=== PATIENT | female | born 1980 | race Caucasian/White ===

== ENCOUNTER 2017-11-04 09:32 | Observation (INO) ==
[2017-11-04] MEDS ORDERED: 0.9 % Sodium Chloride 1,000 ML IVC ONE (09:43)
[2017-11-04] MEDS ORDERED: Ondansetron 4 MG/2 ML VIAL IVP ONE ×2 (09:44→10:58)
[2017-11-04] MEDS ORDERED: Isovue-370 500 ML INFUS..BTL IV ONE ×2 (09:47→13:28)
--- NOTE | 2017-11-04 09:47 | Emergency Department Note ---
Disposition Clinical Impression: Syncope Qualifiers: Syncope type: unspecified Qualified Code(s): R55 - Syncope and collapse Fever Qualifiers: Fever type: unspecified Qualified Code(s): R50.9 - Fever, unspecified Disposition: Admitted As Inpatient Condition: Good Referrals: Hope Perez CNP [Primary Care Provider] - Forms: ED Satisfaction Letter Time of Disposition: 14:02 General Adult HPI - General Chief complaint: ED Chest Pain Stated complaint: CP, +SYNCOPE Time Seen by Provider: 11/04/17 09:36 Source: patient Mode of arrival: wheelchair Limitations: no limitations Nursing Notes Reviewed: Yes Vital Signs Reviewed: Yes - History of Present Illness HPI Narrative: 37-year-old who states the 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 She does not know how long she was on the ground. She feels nauseated now and just does not feel right. Pt Subjective Complaint: Syncopal episode with chest discomfort. Onset (ago): Just WHEELMAN Location: chest Radiation: non-radiation Pain Severity: moderate Pain Scale: 8 Quality: aching Consistency: constant Improves with: nothing Worsens with: nothing Associated symptoms: Reports: denies other symptoms Treatments Prior to Arrival: none - Related Data Home Medications Medication Instructions Recorded Confirmed BuPROPion [Wellbutrin] 300 mg PO DAILY 02/03/15 07/23/17 Hydrochlorothiazide 25 mg PO DAILY 12/05/16 07/23/17 Previous Rx's Medication Instructions Recorded cephALEXin [Keflex] 1,000 mg PO BID #40 capsule 07/23/17 Allergies Allergy/AdvReac Type Severity Reaction Status Date / Time Iodinated Contrast- Oral and AdvReac Vomiting Verified 11/04/17 11:18 IV Dye Penicillins [PCN] AdvReac Swelling Verified 11/04/17 09:35 of Lip/Tongue/Throat All systems ED: reviewed and negative except as stated. Constitutional: Denies: fever, chills, weakness, weight change Eyes: Denies: eye pain, eye discharge, vision change ENT ED: Denies: ear pain, throat pain, dental pain, hearing loss, epistaxis, congestion, dysphagia Cardiovascular: Reports: chest pain, syncope. Denies: palpitations, dyspnea on exertion, edema Respiratory: Denies: cough, dyspnea, wheezes, hemoptysis, stridor Gastrointestinal: Denies: abdominal pain, nausea, vomiting, diarrhea, constipation, hematemesis, melena, hematochezia Genitourinary: Denies: dysuria, frequency, hematuria, discharge Musculoskeletal: Denies: back pain, neck pain, arthralgia, myalgia Integumentary: Denies: rash, abrasion, lesions Neurological: Denies: headache, weakness, numbness, paresthesias, confusion, abnormal gait, vertigo Psychiatric: Denies: anxiety, depression, suicidal thoughts, homicidal thoughts , auditory hallucinations, visual hallucinations Endocrine: Denies: fatigue Hematological/Lymphatic: Denies: easy bleeding, easy bruising Allergic/Immunologic: Denies: facial swelling, urticaria Past Medical History - Past Medical History Medical history: Reports: asthma, cancer, hypertension, migraine Surgical history: Reports: hysterectomy, other (breast reduction) Psychiatric history: Reports: depression - Social History Smoking Status: Current some day smoker Smokeless Tobacco Status: No Alcohol use: Reports: none Drug use: Reports: none Physical Exam - General Limitations: no limitations General appearance: alert, in no apparent distress - Head Head exam: atraumatic, normocephalic, normal inspection - Eye Eye exam: Present: normal appearance, PERRL, EOMI - ENT ENT exam: normal exam, normal oropharynx, mucous membranes moist - Neck Neck exam: Present: normal inspection, full ROM, trachea midline - Chest Chest inspection: Present: normal inspection, symmetric chest wall rise - Respiratory Respiratory exam: Present: normal lung sounds bilaterally - Cardiovascular Cardiovascular exam: Present: regular rate, tachycardia - Abdominal Exam Abdominal exam: Present: soft, Non-Tender. Absent: tenderness, distention, guarding, rebound, rigidity - Extremities Exam Extremities exam: Present: normal inspection, full ROM. Absent: tenderness, pedal edema - Expanded Lower Extremity Exam Neurovascular/Tendon exam: Absent: motor deficit, sensory deficit, tendon deficit Gait: observed and normal - Back Exam Back exam: Present: normal inspection, full ROM. Absent: tenderness - Neurological Exam Neurological exam: Present: alert, oriented X3 - Psychiatric Psychiatric exam: Present: normal affect, normal mood - Skin Skin exam: Present: warm, dry, intact, normal color Course - Reevaluation(s) Reevaluation #1: 37-year-old who had a syncopal episode woke up in the shower. On exam here neurologically she is intact CT of the head and CT of the chest were both negative. She does have a fever with no focus. Time: 14:02 - Consultations Consultation #1: Discussed with Dr. Christianson, admit. Time: 14:02 Vital Signs Temperature 100.1 F H 11/04/17 09:32 Pulse Rate 122 11/04/17 09:32 Respiratory Rate 18 11/04/17 09:32 Blood Pressure 143/90 11/04/17 09:32 O2 Sat by Pulse Oximetry 98 11/04/17 09:32 Temperature 100.5 F H 11/04/17 13:47 Pulse Rate 99 11/04/17 13:48 Respiratory Rate 17 11/04/17 13:48 Blood Pressure 115/70 11/04/17 13:48 O2 Sat by Pulse Oximetry 99 11/04/17 13:48 Oxygen Delivery Oxygen Delivery Room Air Medical Decision Making - Lab Data Lab results reviewed: Yes I reviewed the patient's lab results. Result diagrams: 11/04/17 09:43 11/04/17 09:43 Lab Results 11/04/17 11/04/17 11/04/17 Range/Units 09:43 09:43 09:43 WBC 14.5 H (4.3-11.1) K/mcL RBC 4.88 (3.82-4.97) M/mcL Hgb 14.2 (11.5-15.4) g/dL Hct 41.3 (35.3-44.9) % MCV 84.6 (83.0-100.0) fL MCH 29.1 (28.0-33.3) pg MCHC 34.4 (31.6-35.5) g/dL RDW 13.3 (11.5-14.5) % Plt Count 291 (140-400) K/mcL MPV 9.1 L (9.4-12.4) fL Immature Gran % 0.3 (0-4) % Seg Neutrophils % 84.3 % Lymphocytes % 9.6 % Monocytes % 5.0 % Eosinophils % 0.7 % Basophils % 0.1 % Neutrophils # 12.2 H (1.6-8.9) K/mcL Lymphocytes # 1.4 (0.6-4.6) K/mcL Monocytes # 0.7 (0.0-1.3) K/mcL Eosinophils # 0.1 (0.0-0.6) K/mcL Basophils # 0.0 (0.0-0.2) K/mcL PT 11.6 (9.4-12.1) Seconds INR 1.1 APTT 30.1 (26.0-36.0) Seconds D-Dimer 399 (0-500) ng/mLFEU Sodium 131 L (136-145) mEq/L Potassium 4.0 (3.5-5.1) mEq/L Chloride 101 (98-107) mEq/L Carbon Dioxide 25 (23-29) mEq/L BUN 15 (6-20) mg/dL Creatinine 0.98 (0.60-1.20) mg/dL Est GFR ( Amer) > 60 (> 60) Est GFR (Non-Af Amer) > 60 (> 60) BUN/Creatinine Ratio 15 (6-26) Glucose 109 H (70-105) mg/dL POC Glucose (70-99) mg/dL Calculated Osmolality 273 L (280-300) Lactic Acid (0.5-2.2) mmol/L Calcium 9.0 (8.6-10.3) mg/dL Troponin I < 0.03 (< 0.04) ng/mL Urine Color (Yellow) Urine Clarity (Clear) Urine pH (5.0-8.0) pH Units Ur Specific [place] (1.010-1.025) Urine Protein (Neg-Trace) mg/dL Urine Glucose (UA) (Normal) mg/dL Urine Ketones (Negative) mg/dL Urine Blood (Negative) Urine Nitrite (Negative) Urine Bilirubin (Negative) Urine Urobilinogen (Normal) mg/dL Ur Leukocyte Esterase (Negative) Ur Culture Indicated? (NO) 11/04/17 11/04/17 11/04/17 Range/Units 09:51 09:52 11:04 WBC (4.3-11.1) K/mcL RBC (3.82-4.97) M/mcL Hgb (11.5-15.4) g/dL Hct (35.3-44.9) % MCV (83.0-100.0) fL MCH (28.0-33.3) pg MCHC (31.6-35.5) g/dL RDW (11.5-14.5) % Plt Count (140-400) K/mcL MPV (9.4-12.4) fL Immature Gran % (0-4) % Seg Neutrophils % % Lymphocytes % % Monocytes % % Eosinophils % % Basophils % % Neutrophils # (1.6-8.9) K/mcL Lymphocytes # (0.6-4.6) K/mcL Monocytes # (0.0-1.3) K/mcL Eosinophils # (0.0-0.6) K/mcL Basophils # (0.0-0.2) K/mcL PT (9.4-12.1) Seconds INR APTT (26.0-36.0) Seconds D-Dimer (0-500) ng/mLFEU Sodium (136-145) mEq/L Potassium (3.5-5.1) mEq/L Chloride (98-107) mEq/L Carbon Dioxide (23-29) mEq/L BUN (6-20) mg/dL Creatinine (0.60-1.20) mg/dL Est GFR ( Amer) (> 60) Est GFR (Non-Af Amer) (> 60) BUN/Creatinine Ratio (6-26) Glucose (70-105) mg/dL POC Glucose 105 H (70-99) mg/dL Calculated Osmolality (280-300) Lactic Acid 1.3 (0.5-2.2) mmol/L Calcium (8.6-10.3) mg/dL Troponin I (< 0.04) ng/mL Urine Color Yellow (Yellow) Urine Clarity Clear (Clear) Urine pH 7.0 (5.0-8.0) pH Units Ur Specific [place] > 1.030 H (1.010-1.025) Urine Protein Negative (Neg-Trace) mg/dL Urine Glucose (UA) Normal (Normal) mg/dL Urine Ketones Negative (Negative) mg/dL Urine Blood Negative (Negative) Urine Nitrite Negative (Negative) Urine Bilirubin Negative (Negative) Urine Urobilinogen Normal (Normal) mg/dL Ur Leukocyte Esterase Negative (Negative) Ur Culture Indicated? NO (NO) - Radiology Data Radiology results reviewed: Yes I reviewed the patient's radiology results. Chest X-Ray 11/04/17 09:43 IMPRESSION: No acute cardiopulmonary disease. D/ / Adi Sargent MD / Adi Sargent MD Interpreting Provider: Adi Sargent MD Head CT 11/04/17 09:43 IMPRESSION: No acute intracranial abnormality. D/ / Adi Sargent MD / Adi Sargent MD Interpreting Provider: Adi Sargent MD Chest CTA 11/04/17 09:47 IMPRESSION: No evidence of pulmonary embolism or acute pulmonary abnormality. D/ / Rocco Castellanos MD / Rocco Castellanos MD Interpreting Provider: Rocco Castellanos MD - EKG Data EKG #1 EKG attestation: Yes I reviewed and interpreted this EKG. EKG shows normal: sinus rhythm Rate: tachycardia (103) Rhythm: NSR [place]/QRS: normal Interpretation: no acute changes
[2017-11-04 10:05] LABS: Basophils % 0.1 %; Eosinophils # 0.1 K/mcL (0.0-0.6); Eosinophils % 0.7 %; Hematocrit 41.3 % (35.3-44.9); Hemoglobin 14.2 g/dL (11.5-15.4); Immature Granulocytes % 0.3 % (0-4); Lymphocytes # 1.4 K/mcL (0.6-4.6); Lymphocytes % 9.6 %; Mean Corpuscular HGB Conc 34.4 g/dL (31.6-35.5); Mean Corpuscular Hemoglobin 29.1 pg (28.0-33.3); Mean Corpuscular Volume 84.6 fL (83.0-100.0); Mean Platelet Volume 9.1 fL (9.4-12.4); Monocytes # 0.7 K/mcL (0.0-1.3); Neutrophils # 12.2 K/mcL (1.6-8.9); Platelet Count 291 K/mcL (140-400); Red Blood Count 4.88 M/mcL (3.82-4.97); Red Cell Distribution Width 13.3 % (11.5-14.5); Segmented Neutrophils % 84.3 %
[2017-11-04 10:11] LABS: INR 1.1; Prothrombin Time 11.6 Seconds (9.4-12.1)
[2017-11-04 10:14] LABS: Activated Partial Thrombo Time 30.1 Seconds (26.0-36.0)
[2017-11-04 10:26] LABS: BUN/Creatinine Ratio 15 (6-26); Blood Urea Nitrogen 15 mg/dL (6-20); Carbon Dioxide 25 mEq/L (23-29); Chloride 101 mEq/L (98-107); Glucose 109 mg/dL (70-105); Osmolality,Calculated 273 (280-300); Sodium 131 mEq/L (136-145); Troponin I < 0.03 ng/mL (< 0.04); eGFR For African Americans > 60 (> 60); eGFR For Non-African Americans > 60 (> 60)
[2017-11-04 11:14] LABS: Bilirubin,Urine Negative (Negative); Blood,Urine Negative (Negative); Clarity,Urine Clear (Clear); Color,Urine Yellow (Yellow); Glucose,Urine (UA) Normal (Normal); Ketones,Urine Negative (Negative); Leukocyte Esterase,Urine Negative (Negative); Nitrite,Urine Negative (Negative); Protein,Urine Negative (Neg-Trace); Specific Gravity,Urine > 1.030 (1.010-1.025); Urobilinogen,Urine Normal (Normal)
[2017-11-04] MEDS ORDERED: Acetaminophen 325 MG TABLET PO ONE (12:10)
--- NOTE | 2017-11-04 14:19 | Internal Med History&Physical ---
Date of Encounter: 11/04/17 Time of Encounter: 14:14 Internal Medicine - H&P: HPI Chief complaint: syncope Plans for Post Hospital Care: Home History of present illness: Ms. 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 Patient is being admitted for evaluation of syncope also has a white count of 14,000 no obvious source of infection. Past Med Surg Social Fam HX - Past Medical History Medical history: asthma, cancer, hypertension, migraine Additional medical history: Anyerusm Psychiatric history: depression - Past Surgical History Surgical History: hysterectomy, other (breast reduction) - Social History Smoking Status: Current some day smoker Smokeless Tobacco Status: No Alcohol use: none Drug use: none Internal Medicine - H&P: Meds BuPROPion SR (12 HR) [Wellbutrin SR] 150 mg PO BID 11/04/17 [History] Paroxetine HCl [Paxil] 20 mg PO DAILY 11/04/17 [History] hydroCHLOROthiazide [Hydrochlorothiazide] 25 mg PO DAILY 11/04/17 [History] 3 Allergy/AdvReac Type Severity Reaction Status Date / Time Iodinated Contrast- Oral and AdvReac Vomiting Verified 11/04/17 11:18 IV Dye Penicillins [PCN] AdvReac Swelling Verified 11/04/17 09:35 of Lip/Tongue/Throat All Systems PM: A 10-system review of systems was performed and is negative for pertinent findings except as documented above in the HPI. - Constitutional Constitutional: chills, fever(s), no night sweats - EENT Eyes: no change in vision, no discharge, no pain, no photophobia Ears: no ear discharge, no ear pain, no tinnitus Nose, mouth and throat: no dysphagia, no nasal discharge, no neck pain, no sore throat - Cardiovascular Cardiovascular ROS IM: chest pain, lightheadedness, syncope - Respiratory Respiratory: no cough, no dyspnea, no wheezing, no excessive phlegm production - Constitutional Vitals: Temp Pulse Resp BP Pulse Ox 100.5 F H 99 17 115/70 99 11/04/17 13:47 11/04/17 13:48 11/04/17 13:48 11/04/17 13:48 11/04/17 13:48 - Head Head exam: Present: atraumatic, normocephalic - Eye Eye exam: Present: PERRL, conjuntiva pink, sclera anicteric Pupils: Present: PERRL - Neck Neck exam general surgery: Present: supple, trachea midline. Absent: lymphadenopathy - Respiratory Respiratory exam: Present: CTAB. Absent: accessory muscle use, rales, rhonchi, wheezes - Cardiovascular Cardiovascular exam: Present: RRR, +S1, +S2. Absent: diastolic murmur, gallop, rubs, systolic murmur - GI/Abdominal GI/Abdominal exam: Present: normal bowel sounds, soft, no peritoneal signs. Absent: distended, tenderness - Extremities Exam Extremities exam: Present: warm, radial pulses palpable and symmetrical. Absent : calf tenderness, cyanotic, pedal edema - Neurological Exam Neurological exam: Present: CN II-XII intact, oriented X3, no focal deficits. Absent: pronater drift, facial droop, speech deficit - Skin Skin exam: Present: dry, intact Internal Med - H&P Results - Labs CBC & Chem 7: 11/04/17 09:43 11/04/17 09:43 Labs: Short CBC 11/04/17 Range/Units 09:43 WBC 14.5 H (4.3-11.1) K/mcL Hgb 14.2 (11.5-15.4) g/dL Hct 41.3 (35.3-44.9) % Plt Count 291 (140-400) K/mcL Neutrophils # 12.2 H (1.6-8.9) K/mcL BMP 11/04/17 09:43 Sodium 131 L Potassium 4.0 Chloride 101 Carbon Dioxide 25 BUN 15 Creatinine 0.98 Glucose 109 H Calcium 9.0 Cardiac Enzymes 11/04/17 Range/Units 09:43 Troponin I < 0.03 (< 0.04) ng/mL Urine 11/04/17 Range/Units 11:04 Urine Color Yellow (Yellow) Urine Clarity Clear (Clear) Urine pH 7.0 (5.0-8.0) pH Units Ur Specific [place] > 1.030 H (1.010-1.025) Urine Protein Negative (Neg-Trace) mg/dL Urine Glucose (UA) Normal (Normal) mg/dL - Impressions ITS Impressions Chest X-Ray 11/04/17 09:43 IMPRESSION: No acute cardiopulmonary disease. D/ / Adi Sargent MD / Adi Sargent MD Interpreting Provider: Adi Sargent MD Head CT 11/04/17 09:43 IMPRESSION: No acute intracranial abnormality. D/ / Adi Sargent MD / Adi Sargent MD Interpreting Provider: Adi Sargent MD Chest CTA 11/04/17 09:47 IMPRESSION: No evidence of pulmonary embolism or acute pulmonary abnormality. D/ / Rocco Castellanos MD / Rocco Castellanos MD Interpreting Provider: Rocco Castellanos MD - Assessment and plan (1) HTN (hypertension) Current Visit: Yes Status: Chronic Assessment and plan: Chronic and well controlled Qualifiers: Hypertension type: essential hypertension Qualified Code(s): I10 - Essential (primary) hypertension (2) Leukocytosis Current Visit: Yes Status: Acute Assessment and plan: No obvious source of infection chest x-ray and CT does not show pneumonia UA is normal likely reactive Qualifiers: Leukocytosis type: unspecified Qualified Code(s): D72.829 - Elevated white blood cell count, unspecified (3) Fever Current Visit: Yes Status: Acute Assessment and plan: Low grade possible viral syndrome Qualifiers: Fever type: unspecified Qualified Code(s): R50.9 - Fever, unspecified (4) Syncope Current Visit: Yes Status: Acute Assessment and plan: Presentation is very suggestive of vasovagal syncope with nausea and then syncope versus dehydration and vasodepressor syncope Was started on IV hydration and monitor on telemetry has some associated chest pain with trend troponin Qualifiers: Syncope type: unspecified Qualified Code(s): R55 - Syncope and collapse - Time Spent With Patient Total time spent is greater than 50% in coordination of care (as documented) at patient's floor/unit and/or counseling patient:
[2017-11-04] MEDS ORDERED: Naloxone 0.4 MG/ML INJ IVP PRN (14:25)
--- NOTE | 2017-11-04 16:10 | Electrocardiograph Report ---
[place] [id number] Test Date: 2017-11-04 Pat Name: Stacey Glass Department: 104 Room: [facility] Gender: F Fiberglass Finisher: ALFREDO : 1980 Requested By: Brock Nava Order Number: [id number] Reading MD: J Luis Montelongo Measurements Intervals [place] Rate: 94 P: 38 OK: 138 QRS: 5 QRSD: 112 T: 51 QT: 310 QTc: 362 Interpretive Statements SINUS RHYTHM INTRAVENTRICULAR CONDUCTION DELAY Electronically Signed On 11-04-2017 16:08:37 EDT by J Luis Montelongo
--- NOTE | 2017-11-04 16:33 | Electrocardiograph Report ---
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
[2017-11-04] MEDS: traMADol 50 MG TABLET PO PRN (16:42)
[2017-11-04] MEDS: 0.9 % Sodium Chloride 1,000 ML IVC SCH (16:42)
[2017-11-04] MEDS: Ondansetron 4 MG/2 ML VIAL IVP SCH ×2 (18:33→22:57)
[2017-11-04] MEDS ORDERED: Perflutren Lipid Microsphere 1.3 ML in 0.9 % Sodium Chloride 8.7 ML IVP ONE (19:51)
[2017-11-04] MEDS: BuPROPion SR (12 HR) 150 MG TABLET PO SCH (20:36)
[2017-11-04] MEDS: Acetaminophen 325 MG TABLET PO PRN (20:41)
[2017-11-04] MEDS ORDERED: Ibuprofen 600 MG TABLET PO PRN (21:35)
[2017-11-04] MEDS ORDERED: Acetaminophen 650 MG RECTAL SUPP RC PRN (22:42)
[2017-11-05] MEDS: Ondansetron 4 MG/2 ML VIAL IVP SCH ×3 (04:32→19:32)
[2017-11-05] MEDS: Acetaminophen 325 MG TABLET PO PRN ×2 (04:33→12:22)
[2017-11-05 05:49] LABS: Alanine Aminotransferase 15 Units/L (7-52); Albumin 3.2 g/dL (3.5-5.7); Albumin/Globulin Ratio 1.2 (1.1-2.2); Alkaline Phosphatase 55 Units/L (34-104); Aspartate Amino Transferase 12 Units/L (13-39); BUN/Creatinine Ratio 11 (6-26); Bilirubin,Total 0.5 mg/dL (0.3-1.0); Blood Urea Nitrogen 9 mg/dL (6-20); Calcium 8.2 mg/dL (8.6-10.3); Carbon Dioxide 23 mEq/L (23-29); Chloride 109 mEq/L (98-107); Chol/HDL Ratio 4.7 (0-4.9); Cholesterol 154 mg/dL (< 200); Globulin 2.7 g/dL (2.4-3.5); Glucose 87 mg/dL (70-105); HDL Cholesterol 33 mg/dL (40-59); LDL Cholesterol,Calculated 104 mg/dL (0-99); Magnesium 2.1 mg/dL (1.6-2.6); Osmolality,Calculated 284 (280-300); Potassium 3.6 mEq/L (3.5-5.1); Sodium 138 mEq/L (136-145); Total Protein 5.9 g/dL (6.4-8.9); Triglycerides 85 mg/dL (< 150); eGFR For African Americans > 60 (> 60); eGFR For Non-African Americans > 60 (> 60)
[2017-11-05] MEDS ORDERED: Regadenoson 0.4 MG/5 ML SYRINGE IVP ONE (05:57)
[2017-11-05] MEDS: BuPROPion SR (12 HR) 150 MG TABLET PO SCH ×2 (09:27→21:53)
[2017-11-05] MEDS: 0.9 % Sodium Chloride 1,000 ML IVC SCH (16:57)
[2017-11-05] MEDS ORDERED: GI Cocktail 40 ML EACH PO ONE (17:57)
--- NOTE | 2017-11-05 17:58 | Internal Med Progress Note ---
Date of Encounter: 11/05/17 Time of Encounter: 17:55 - Assessment and plan (1) Syncope Current Visit: Yes Status: Acute Assessment and plan: Likely vasovagal based on presentation. Cardiac and pulmonary workup negative Continue current treatment of n/v to prevent vasovagal episodes. Qualifiers: Syncope type: unspecified Qualified Code(s): R55 - Syncope and collapse (2) Intractable nausea and vomiting Current Visit: Yes Status: Acute Assessment and plan: Cardiac etiology was ruled out (negative stress test, negative troponin) since patient did have this with chest pain. Patient does have some signs and symptoms of gastritis possibly severe. - Try GI cocktail - H2 marii - PPI will take few days to have effect so start therapy now. Qualifiers: Vomiting type: unspecified Qualified Code(s): R11.2 - Nausea with vomiting , unspecified (3) Fever Current Visit: Yes Status: Acute Qualifiers: Fever type: unspecified Qualified Code(s): R50.9 - Fever, unspecified (4) Leukocytosis Current Visit: Yes Status: Acute Assessment and plan: Possibly stress reaction from n/v Possibly infectious related. Treat n/v symptoms follow-up GI panel Recheck in AM Qualifiers: Leukocytosis type: unspecified Qualified Code(s): D72.829 - Elevated white blood cell count, unspecified (5) HTN (hypertension) Current Visit: Yes Status: Chronic Qualifiers: Hypertension type: essential hypertension Qualified Code(s): I10 - Essential (primary) hypertension - Time Spent With Patient Total time spent is greater than 50% in coordination of care (as documented) at patient's floor/unit and/or counseling patient: - Subjective Interval history: Patient states feeling miserable unable to handle lunch or dinner at this moment. Denies fevers/chills. Admits to diaphoresis. - Constitutional Vitals: Temp Pulse Resp BP Pulse Ox 98.5 F 75 16 93/60 95 11/05/17 16:02 11/05/17 16:02 11/05/17 16:02 11/05/17 16:02 11/05/17 16:02 - Head Head exam: Present: atraumatic, normocephalic - Eye Eye exam: Present: PERRL, conjuntiva pink, sclera anicteric Pupils: Present: PERRL - Neck Neck exam general surgery: Present: supple, trachea midline. Absent: lymphadenopathy - Respiratory Respiratory exam: Present: CTAB. Absent: accessory muscle use, rales, rhonchi, wheezes - Cardiovascular Cardiovascular exam: Present: RRR, +S1, +S2. Absent: diastolic murmur, gallop, rubs, systolic murmur - GI/Abdominal GI/Abdominal exam: Present: normal bowel sounds, soft, no peritoneal signs. Absent: distended, tenderness - Extremities Exam Extremities exam: Present: warm, radial pulses palpable and symmetrical. Absent : calf tenderness, cyanotic, pedal edema - Neurological Exam Neurological exam: Present: CN II-XII intact, oriented X3, no focal deficits. Absent: pronater drift, facial droop, speech deficit - Skin Skin exam: Present: dry, intact Internal Medicine: Result - Labs CBC & Chem 7: 11/04/17 09:43 11/05/17 04:26 Labs: BMP 11/05/17 04:26 Sodium 138 Potassium 3.6 Chloride 109 H Carbon Dioxide 23 BUN 9 Creatinine 0.83 Glucose 87 Calcium 8.2 L Cardiac Enzymes 11/04/17 11/05/17 Range/Units 21:58 04:26 Troponin I < 0.03 < 0.03 (< 0.04) ng/mL Liver Function 11/05/17 Range/Units 04:26 Total Bilirubin 0.5 (0.3-1.0) mg/dL AST 12 L (13-39) Units/L ALT 15 (7-52) Units/L Alkaline Phosphatase 55 (34-104) Units/L Albumin 3.2 L (3.5-5.7) g/dL - ABG Interpretation ABG results: PT/INR, D-dimer PT 11.6 Seconds (9.4-12.1) 11/04/17 09:43 D-Dimer 399 ng/mLFEU (0-500) 11/04/17 09:43 Consult Discharge Plan - Plan Referrals: Hope Perez, CARMEL [Primary Care Provider] -
[2017-11-05 18:38] LABS: Adenovirus F 40/41 PCR Not detected (Not detect); Astrovirus PCR Not detected (Not detect); C.difficile Toxin A/B by PCR See reflex test (Not detect); Campylobacter by PCR Not detected (Not detect); Cryptosporidium by PCR Not detected (Not detect); Cyclospora cayetanensis PCR Not detected (Not detect); Entamoeba histolytica PCR Not detected (Not detect); Enteroaggregative E.coli(EAEC) Not detected (Not detect); Enteropathogenic E.coli(EPEC) Not detected (Not detect); Enterotoxigenic E.coli (ETEC) Not detected (Not detect); Giardia lamblia PCR Not detected (Not detect); Norovirus GI/GII PCR Not detected (Not detect); Plesiomonas shigelloides PCR Not detected (Not detect); Rotavirus A PCR Not detected (Not detect); Salmonella PCR Not detected (Not detect); Sapovirus PCR Not detected (Not detect); Shig/EnteroinvasiveE coli EIEC Not detected (Not detect); Shigalike tox-prod E coli STEC Not detected (Not detect); Vibrio PCR Not detected (Not detect); Vibrio cholerae PCR Not detected (Not detect); Yersinia enterocolitica PCR Not detected (Not detect)
[2017-11-05] MEDS ORDERED: Ringers Solution, Lactated 1,000 ML IVC SCH (19:30)
[2017-11-05] MEDS: Famotidine 20 MG/2 ML VIAL IVP SCH (19:31)
[2017-11-05] MEDS: Pantoprazole 40 MG VIAL IVP SCH (19:32)
[2017-11-05] MEDS: traMADol 50 MG TABLET PO PRN (19:44)
[2017-11-05] MEDS: Vancomycin Oral Soln 125 MG/2.5 ML UDC PO SCH (21:49)
[2017-11-05] MEDS: metroNIDAZOLE 500 MG TABLET PO SCH (21:54)
[2017-11-06] MEDS ORDERED: MetroNIDAZOLE 500 MG/100 ML 500 MG/100 ML BAG IVPB SCH
[2017-11-06] MEDS: Ondansetron 4 MG/2 ML VIAL IVP SCH ×3 (00:18→11:32)
[2017-11-06] MEDS: Acetaminophen 325 MG TABLET PO PRN (00:48)
[2017-11-06] MEDS: Famotidine 20 MG/2 ML VIAL IVP SCH (06:18)
[2017-11-06] MEDS: Pantoprazole 40 MG VIAL IVP SCH (06:18)
[2017-11-06 06:38] LABS: Basophils % 0.1 %; Eosinophils # 0.2 K/mcL (0.0-0.6); Eosinophils % 1.9 %; Immature Granulocytes % 0.1 % (0-4); Lymphocytes # 1.8 K/mcL (0.6-4.6); Lymphocytes % 22.4 %; Mean Corpuscular HGB Conc 32.5 g/dL (31.6-35.5); Mean Corpuscular Hemoglobin 27.8 pg (28.0-33.3); Mean Corpuscular Volume 85.5 fL (83.0-100.0); Mean Platelet Volume 9.1 fL (9.4-12.4); Monocytes # 0.6 K/mcL (0.0-1.3); Monocytes % 7.3 %; Neutrophils # 5.4 K/mcL (1.6-8.9); Platelet Count 268 K/mcL (140-400); Red Blood Count 4.68 M/mcL (3.82-4.97); Red Cell Distribution Width 13.3 % (11.5-14.5); Segmented Neutrophils % 68.2 %
[2017-11-06 06:57] LABS: BUN/Creatinine Ratio 8 (6-26); Blood Urea Nitrogen 6 mg/dL (6-20); Calcium 8.7 mg/dL (8.6-10.3); Carbon Dioxide 25 mEq/L (23-29); Chloride 108 mEq/L (98-107); Glucose 95 mg/dL (70-105); Osmolality,Calculated 287 (280-300); Potassium 3.9 mEq/L (3.5-5.1); Sodium 140 mEq/L (136-145); eGFR For African Americans > 60 (> 60); eGFR For Non-African Americans > 60 (> 60)
[2017-11-06] MEDS: metroNIDAZOLE 500 MG TABLET PO SCH (10:02)
[2017-11-06] MEDS: BuPROPion SR (12 HR) 150 MG TABLET PO SCH (10:02)
[2017-11-06 11:00] VITALS: BP 116/78
[2017-11-06] MEDS: Vancomycin Oral Soln 125 MG/2.5 ML UDC PO SCH (11:33)
--- NOTE | 2017-11-06 12:31 | Discharge Summary ---
- NOTES TO OUTPATIENT PROVIDER Notes to Outpatient Provider: Follow-up with primary care in 3-5 days. Orders not resulted at time of discharge: Pending orders 11/04/17 16:41 NM erik perf SPECT multi [NM] Routine 11/07/17 04:00 BMP [Basic Metabolic Panel] AM 0400 Complete Blood Count [HEME] AM 0400 Date of Encounter: 11/06/17 Time of Encounter: 12:25 - Discharge Diagnosis (1) Chest pain Priority: Secondary Status: Acute Qualifiers: Chest pain type: unspecified Qualified Code(s): R07.9 - Chest pain, unspecified (2) Syncope Priority: Primary Status: Acute Qualifiers: Syncope type: unspecified Qualified Code(s): R55 - Syncope and collapse (3) Intractable nausea and vomiting Priority: Secondary Status: Acute Qualifiers: Vomiting type: unspecified Qualified Code(s): R11.2 - Nausea with vomiting , unspecified (4) Fever Priority: Secondary Status: Acute Qualifiers: Fever type: unspecified Qualified Code(s): R50.9 - Fever, unspecified (5) Leukocytosis Priority: Secondary Status: Acute Qualifiers: Leukocytosis type: unspecified Qualified Code(s): D72.829 - Elevated white blood cell count, unspecified (6) HTN (hypertension) Priority: Secondary Status: Chronic Qualifiers: Hypertension type: essential hypertension Qualified Code(s): I10 - Essential (primary) hypertension (7) C. 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 She also had chest pain with chest discomfort as well. decided to go on have a shower and then she passed out and then brought to the emergency room also has some fever and chills evaluation is unremarkable CTA of the chest was negative does not have pneumonia UA is negative. Patient is being admitted for evaluation of syncope also has a white count of 14,000 no obvious source of infection. She was brought in for further monitoring. SHe had stress test that was negative for ischemia and negative cardiac enzymes. A CTA was negative for PE. A c diff resulted positive. Patient was able to gradually increase diet and she was started on PO vancomcyin. She also had signs of gastritis/esophagitis and given GI cocktail. She was discharged hallie ein stable condition. We are writing for oral vancomycin on discharge but due to cost reasons she may need a Flagyl script instead. Also home with ppi medication too. - Time Spent with Patient Total time spent providing and/or coordinating discharge services: - Discharge Medications Prescriptions: metroNIDAZOLE [Flagyl] 500 mg PO TID #24 tablet Home Medications: BuPROPion SR (12 HR) [Wellbutrin SR] 150 mg PO BID 11/04/17 [History] Paroxetine HCl [Paxil] 20 mg PO DAILY 11/04/17 [History] hydroCHLOROthiazide [Hydrochlorothiazide] 25 mg PO DAILY 11/04/17 [History] Omeprazole [PriLOSEC] 20 mg PO DAILY #14 cap 11/06/17 [Rx] Vancomycin HCl 125 mg PO QID #40 cap 11/06/17 [Rx] metroNIDAZOLE [Flagyl] 500 mg PO TID #24 tablet 11/06/17 [Rx] Allergies/Adverse Reactions: 3 Allergy/AdvReac Type Severity Reaction Status Date / Time Iodinated Contrast- Oral and AdvReac Vomiting Verified 11/04/17 11:18 IV Dye Penicillins [PCN] AdvReac Swelling Verified 11/04/17 09:35 of Lip/Tongue/Throat Date of admission: 11/04/17 14:52 Primary care physician: Hope Perez Discharging clinician: Wero Bass - Constitutional Vitals: Temp Pulse Resp BP Pulse Ox 98.7 F 68 16 116/78 95 11/06/17 11:00 11/06/17 11:00 11/06/17 11:00 11/06/17 11:00 11/06/17 11:00 - Head Head exam: Present: atraumatic, normocephalic - Eye Eye exam: Present: PERRL, conjuntiva pink, sclera anicteric Pupils: Present: PERRL - Neck Neck exam general surgery: Present: supple, trachea midline. Absent: lymphadenopathy - Respiratory Respiratory exam: Present: CTAB. Absent: accessory muscle use, rales, rhonchi, wheezes - Cardiovascular Cardiovascular exam: Present: RRR, +S1, +S2. Absent: diastolic murmur, gallop, rubs, systolic murmur - GI/Abdominal GI/Abdominal exam: Present: normal bowel sounds, soft, no peritoneal signs. Absent: distended, tenderness - Extremities Exam Extremities exam: Present: warm, radial pulses palpable and symmetrical. Absent : calf tenderness, cyanotic, pedal edema - Neurological Exam Neurological exam: Present: CN II-XII intact, oriented X3, no focal deficits. Absent: pronater drift, facial droop, speech deficit - Skin Skin exam: Present: dry, intact - Patient Status Disposition: Home, Self-Care Condition: Good Functional capacity at discharge: independent ambulation Overall status at discharge: patient is progressing back to baseline - Discharge Instructions Follow Up With: Hope Perez, CARMEL [Primary Care Provider] - - Diet and Activity Activity: as per physical therapy, increase activity as tolerated Diet: advance to your usual diet
[2017-11-06] MEDS ORDERED: Vancomycin Oral Soln 125 MG/2.5 ML UDC PO SCH (17:00)
== END 2017-11-06 16:02 | disposition home or self-care (01) ==
LOC: EMEROO 09:32 → 3NENU 09:32
PROVIDERS: ADMIT Internal Medicine Cardiovascular Disease; ATTEND Internal Medicine Cardiovascular Disease